=== PATIENT | male | born 2000 | race Caucasian/White ===

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

== ENCOUNTER 2022-04-30 10:14 | Emergency (ER) | payer OTHER, SELFPAY ==
[2022-04-30 10:28] VITALS: BP 112/74; PULSE 80; RESP 16; TEMP 36.6; O2SAT 100
[2022-04-30 10:30] VITALS: BP 112/74; PULSE 80; RESP 16; TEMP 36.6; O2SAT 100
--- NOTE | 2022-04-30 10:32 | ED.WOUNDLAC ---
HPI - Wound/Laceration General Chief Complaint: Wound/Laceration Stated Complaint: stepped on a nail at work Time Seen by Provider: 04/30/22 10:20 Source: patient, family and RN notes reviewed History of Present Illness HPI narrative: Patient is a 21-year-old male who presents to Urgent Care with his mother with complaints of stepping on a nail. Patient states that went through his shoe yesterday. Patient is up-to-date on tetanus he believes from high school vaccinations. States that there is some tenderness to the area but denies of any swelling or drainage. Patient is clean the area with alcohol but has otherwise not done anything [id number] for pain or discomfort. No other acute complaints. Mother states that he has been very anxious about possibly not being up-to-date on tetanus and is really wanting a tetanus vaccination. No other acute complaints. No acute distress noted. Mother and patient aware of the plan of care. Some parts of this dictation were generated by voice recognition software and may contain typographical and/or grammatical inaccuracies. Related Data Home Medications Medication Instructions Recorded Confirmed rizatriptan 10 mg tablet 10 mg PO ONCE PRN Headache 04/30/22 04/30/22 Allergies Allergy/AdvReac Type Severity Reaction Status Date / Time amoxicillin Allergy Unknown Unknown Verified 04/30/22 10:29 [place] Allergy Unknown Unknown Uncoded 04/30/22 10:29 [place] Allergy Unknown Unknown Uncoded 04/30/22 10:29 Review of Systems Review of Systems: CONSTITUTIONAL: Denies fever, chills, or sweats. EYES: Denies visual changes, redness, or discharge. ENT: Denies rhinorrhea, congestion, sore throat, or otalgia. CARDIOVASCULAR: Denies chest pain, palpitations, or edema. RESPIRATORY: Denies cough or dyspnea. GASTROINTESTINAL: Denies abdominal pain, nausea, vomiting, or diarrhea. GENITOURINARY: Denies dysuria or hematuria. SKIN: Reports of a puncture wound to the bottom of the left foot MUSCULOSKELETAL: Denies back pain, joint pain, or myalgia. NEUROLOGIC: Denies headache, numbness, or weakness. All other systems reviewed are negative, except as documented in HPI. [facility] Family History Family History Other Diabetes mellitus Hypertension Social History Social History Smoking status: Never smoker Alcohol intake: never Comments At the time of my signature, I reviewed and agree with the nursing past medical, surgical, social, and family history. There is no relevant family history pertinent to the patient complaint. Exam Narrative: GENERAL: This is a well-nourished, well-developed patient, in no apparent distress. HEAD: normocephalic, atraumatic. EYES: PERRL. Sclera clear/white. Vision is grossly intact. EARS: External ears normal NOSE: External nose normal with no obvious nasal discharge, nares without redness, no rhinorrhea. THROAT: Mucous membranes moist NECK: Neck supple GASTROINTESTINAL: Abdomen soft, non-tender, nondistended. Bowel sounds are active. No hepato-splenomegaly, or palpable masses. No guarding. SKIN: Manage draining, neck and erythemic, non edematous puncture wound to the lateral plantar aspect of the left foot NEURO: awake, alert, and oriented to person, place and time. There were no obvious focal neurologic abnormalities. EXTREMITIES: No edema, erythema or ecchymosis noted to the left lower extremity. Range of motion left lower extremity within normal limits. Positive strong left pedal pulse with capillary refill less than 2 seconds Course Course Level of Care: Express Care Visit Vital Signs Vital signs: Vital Signs Temperature 98 F 04/30/22 10:28 Pulse Rate 80 04/30/22 10:28 Respiratory Rate 16 04/30/22 10:28 Blood Pressure 112/74 04/30/22 10:28 Pulse Oximetry 100 04/30/22 10:28 Temperature 98 F 04/30/22 1
[2022-04-30] MEDS: TETANUS,DIPHTHERIA,AC PERTUSSIS ADULT (0.5 ML) BOOSTRIX IM (10:50)
== END 2022-04-30 11:12 | disposition home or self-care (01) ==
PROVIDERS: Emergency Provider Nurse Practitioner Family
DX: S91.332A Puncture wound without foreign body, left foot, initial encounter (principal); W45.0XXA Nail entering through skin, initial encounter; Z23 Encounter for immunization
CPT/HCPCS: 90471; 90715; 99213; G0463

== ENCOUNTER 2023-05-16 17:48 | Emergency (ER) | payer OTHER, SELFPAY ==
[2023-05-16 17:59] VITALS: BP 132/68; PULSE 94; RESP 16; TEMP 37; O2SAT 100
--- NOTE | 2023-05-16 18:23 | ED.URI ---
HPI - URI/Sore Throat General Chief Complaint: Upper Respiratory Infection Stated Complaint: SORE THROAT/RUNNY NOSE/HEADACHE/EARACHE Time Seen by Provider: 05/16/23 18:23 Source: patient Mode of arrival: ambulatory Limitations: no limitations History of Present Illness HPI Narrative: 22-year-old male presents with complaint of nasal congestion, postnasal drainage, sore throat, headaches over the past 2-3 days. Afebrile. States his mom gave him some sinus medication and did not help. All systems reviewed and negative except as noted above. Related Data Home Medications Medication Instructions Recorded Confirmed No Home Medications 05/16/23 05/16/23 Allergies Allergy/AdvReac Type Severity Reaction Status Date / Time amoxicillin Allergy Unknown Unknown Verified 05/16/23 18:09 [place] Allergy Unknown Unknown Uncoded 05/16/23 18:09 [place] Allergy Unknown Unknown Uncoded 05/16/23 18:09 Review of Systems Review of Systems: CONSTITUTIONAL: Denies fever, chills, or sweats. EYES: Denies visual changes, redness, or discharge. ENT: Reports rhinorrhea, congestion, sore throat, pressure to bilateral ears CARDIOVASCULAR: Denies chest pain, palpitations, or edema. RESPIRATORY: Denies cough or dyspnea. GASTROINTESTINAL: Denies abdominal pain, nausea, vomiting, or diarrhea. GENITOURINARY: Denies dysuria or hematuria. SKIN: Denies rash or itching. MUSCULOSKELETAL: Denies back pain, joint pain, or myalgia. NEUROLOGIC: Reports headache. Denies numbness, or weakness. PSYCHIATRIC: Denies anxiety or depression. All other systems reviewed are negative, except as documented in HPI. PMFSH Family History Family History Other Diabetes mellitus Hypertension Social History Social History Smoking status: Never smoker Alcohol intake: never Comments At time of signature, agree with nursing past medical, surgical, social and family history. There is no relevant family history pertinent to the presenting complaint. Exam Narrative: GENERAL: This is a well-nourished, well-developed patient, in no apparent distress. HEAD: normocephalic, atraumatic. EYES: PERRL. Sclera clear/white. Vision is grossly intact. EARS: External ears normal, auditory canals clear and without drainage, TMs normal without perforation. Hearing grossly intact. NOSE: External nose normal with clear nasal drainage, moderate congestion, erythema and swelling to bilateral nares. THROAT: Mucous membranes moist, erythema with postnasal drainage. No swelling or exudates. NECK: Neck supple, non-tender without lymphadenopathy, masses or thyromegaly. CARDIOVASCULAR: Regular rate and rhythm without murmurs, gallops, or rubs. RESPIRATORY: Clear to auscultation. Breath sounds equal bilaterally. No wheezes, rales, or rhonchi. SKIN: warm, Dry, intact with no suspicious lesions or rash, good texture and turgor. NEURO: awake, alert, and oriented to person, place and time. There were no obvious focal neurologic abnormalities. EXTREMITIES: No joint tenderness, effusion, or edema noted. Course Course Level of Care: Express Care Visit Vital Signs Vital signs: Vital Signs Temperature 37.0 C 05/16/23 17:59 Pulse Rate 94 05/16/23 17:59 Respiratory Rate 16 05/16/23 17:59 Blood Pressure 132/68 05/16/23 17:59 Pulse Oximetry 100 05/16/23 17:59 Temperature 37.0 C 05/16/23 17:59 Pulse Rate 94 05/16/23 17:59 Respiratory Rate 16 05/16/23 17:59 Blood Pressure 132/68 05/16/23 17:59 Pulse Oximetry 100 05/16/23 17:59 Oxygen Delivery Room Air 05/16/23 18:00 Reviewed MDM - URI/Sore Throat MDM Narrative Medical decision making narrative: Patient is aware of diagnosis, understands and agrees to treatment plan. Anticipatory guidance given. Patient agrees to follow-up as directed and is aware of reasons to see
== END 2023-05-16 18:34 | disposition home or self-care (01) ==
PROVIDERS: Emergency Provider Nurse Practitioner Family
DX: J01.90 Acute sinusitis, unspecified (principal); Z20.822 Contact with and (suspected) exposure to COVID-19
CPT/HCPCS: 87081; 87426; 87804; 87880; 99213; G0463

== ENCOUNTER 2025-03-02 18:44 | Emergency (ER) | payer OTHER, SELFPAY ==
[2025-03-02 19:01] VITALS: BP 138/70; PULSE 98; RESP 16; TEMP 36.1; O2SAT 99
--- NOTE | 2025-03-02 19:33 | ED.GENADULT ---
HPI - General Adult General Chief complaint: Chest Pain Stated complaint: Chest Pain Time Seen by Provider: 03/02/25 19:16 Source: patient and RN notes reviewed Mode of arrival: ambulatory Limitations: no limitations History of Present Illness HPI narrative: 24-year-old male patient presents today complaining of left-sided upper chest pain radiating to the left axilla that has been fairly constant since yesterday. He currently rates the pain 6/10. Pain is worsened with palpation of the area. He took some Maalox yesterday and reports some slight improvement in symptoms. Prior to onset of symptoms he did have some British food to eat, but states that eating spicy food has never bothered him in the past. He denies any additional symptoms to include shortness of breath, nausea or vomiting, dizziness or lightheadedness. Denies any sick symptoms such as cough congestion. He has no history of GERD or ulcers. He is a nonsmoker. He does not smoke marijuana. He has no cardiac or pulmonary history. No family members with premature deaths. Related Data Home Medications ?Medication ?Instructions ?Recorded ?Confirmed ?Last Taken ?Type No Home Medications 03/02/25 03/02/25 Unknown History Allergies Allergy/AdvReac Type Severity Reaction Status Date / Time amoxicillin Allergy Unknown Unknown Verified 03/02/25 19:23 Penicillins Allergy Unknown Unknown Verified 03/02/25 19:23 [place] Allergy Unknown Unknown Uncoded 04/09/24 12:54 [place] Allergy Unknown Unknown Uncoded 04/09/24 12:54 PMFSH Surgical History Surgical History (Updated 08/15/23 @ 11:46 by Cathy Avina MA) History of placement of ear tubes [place] teeth extracted History of tonsillectomy and adenoidectomy Family History Family History (Updated 08/15/23 @ 11:50 by Cathy Avina MA) Father Diabetes mellitus Hypertension Heart disease Mother Diabetes mellitus Heart disease Hypertension Disorder of thyroid Grandparent Breast cancer Diabetes mellitus Hypertension Heart disease Social History Social History (Updated 09/19/23 @ 15:11 by Cathy Avina MA) Smoking status: Never smoker Alcohol intake: never Substance use: never Substance use type: does not use Lack of Transportation: No Lack of Food: Never True Current Housing: I Have Housing Concerned About Future Housing: No Difficulty Paying Gas/Electric Bills: No Difficulty Paying for Meds: No Currently Unemployed: No Education: Associate Degree Difficulty w/ Childcare or Family Care: No Living arrangements: with family Occupation/Education: occupation Gender identity (if verbalized by the patient): Male Agree to blood products: Yes Comments At time of signature, I have reviewed and agree with nursing past medical, surgical, social and family history unless otherwise noted. Please see nursing chart for further information. There is no relevant family history pertinent to the presenting complaint Exam Narrative: GENERAL: Well-appearing, well-nourished, and in no acute distress. HEAD: Normocephalic, atraumatic. EYES: EOMI. No redness or drainage. Conjunctivae normal. ENT: Mucous membranes pink and moist. NECK: Normal AROM. Supple. No lymphadenopathy. CHEST: No respiratory distress. Clear to auscultation. Chest is tender to palpation, tenderness extending to the left axilla. No edema, crepitus or step-off noted. HEART: Regular rate and rhythm. No murmur appreciated. Normal peripheral pulses. ABDOMEN: Soft, nontender, nondistended, normal active bowel sounds. EXTREMITIES: Normal range of motion. No edema. SKIN: Warm, dry, no rash. Capillary refill normal. Normal skin turgor. NEURO: No focal deficits. Alert and oriented x3. Gait steady. PSYCH: Normal affect. No signs of depression or anxiety. Course Course Level of Care: Express Care Visit Vital Signs Vital signs: Vital Signs Temperature 96.9 F L 03/02/25 19:01 Pulse Rate 98 03/02/25 19:01 Respiratory Rate 16 03/02/25 19:01 Blood Pressure 138/70 03/02/25 19:01 Pulse Oximetry 99 03/02/25 19:01 Temperature 96.9 F L 03/02/25 19:01 Pulse Rate 98 03/02/25 19:01 Respiratory Rate 16 03/02/25 19:01 Blood Pressure 138/70 03/02/25 19:01 Pulse Oximetry 99 03/02/25 19:01 Reviewed Transfer Transfered to: [facility] Transportation: Other (Private vehicle) Transfer rationale: Chest pain Accepting physician: Rachel. Report given to RONY Viramontes [facility] MDM Narrative Medical decision making narrative: 24-year-old male patient presents today complaining of left-sided upper chest pain radiating to the left axilla that has been fairly constant since yesterday. He currently rates the pain 6/10. Pain is worsened with palpation of the area. He took some Maalox yesterday and reports some slight improvement in symptoms. Prior to onset of symptoms he did have some British food to eat, but states that eating spicy food has never bothered him in the past. He denies any additional symptoms to include shortness of breath, nausea or vomiting, dizziness or lightheadedness. Denies any sick symptoms such as cough congestion. He has no history of GERD or ulcers. He is a nonsmoker. He does not smoke marijuana. He has no cardiac or pulmonary history. No family members with premature deaths. Upon exam, left upper chest is tender palpation extending to the left axilla. EKG showed sinus rhythm with nonspecific T-wave abnormalities. Due to patient's complaint, exam, and EKG changes, recommend patient go to the ER for further evaluation and treatment. Patient would like to go to [facility] as this is where he works. Report given. Vital signs stable. Patient agrees with plan. Differential Diagnosis Differential Diagnosis: Chest pain, arrhythmia, costochondritis, pleurisy, musculoskeletal chest pain ECG Data EKG #1: Attestation: I personally reviewed and interpreted this ECG as follows: ECG completion date: 03/02/25 ECG completion time: 19:00 Prior ECG tracings: not available for review Interpretation: Sinus rhythm with nonspecific T-wave abnormalities. Heart rate 91 Critical Care Time Critical Care Time Critical Care Time: No Discharge Plan Discharge Clinical Impression: Chest pain Qualifiers: Chest pain type: unspecified Qualified Code(s): R07.9 - Chest pain, unspecified Patient Disposition: Acute Care Hospital Condition: Stable Patient Language: Turkmen Prescriptions: No Action No Home Medications Follow-up/Referrals: PHYSICIAN,ELECTRICAL MAINTENANCE MECHANIC [Primary Care Provider, Internal Medicine] Time of Disposition: 19:34
== END 2025-03-02 19:43 | disposition short-term general hospital (02) ==
PROVIDERS: Emergency Provider Nurse Practitioner
DX: R07.9 Chest pain, unspecified (principal)
CPT/HCPCS: 99212; G0463